=== PATIENT | female | born 1970 | race Caucasian/White ===

== ENCOUNTER 2022-03-09 21:32 | Emergency (ER) | payer OTHER, SELFPAY ==
[2022-03-09 21:39] VITALS: BP 174/70; PULSE 102; RESP 20; TEMP 36.5; O2SAT 100; BMI 21.2
[2022-03-09 22:38] LABS: Influenza A PCR NEGATIVE (Negative); Influenza B PCR NEGATIVE (Negative); Resp Syncy Virus RNA Qual PCR NEGATIVE (Negative); SARS COV2 PCR INHOUSE NEGATIVE (Negative)
--- NOTE | 2022-03-09 23:56 | ED.GENADULT ---
HPI - General Adult General Chief complaint: General Medical Stated complaint: Chest Pain/ Diff Breathing Time Seen by Provider: 03/09/22 23:56 Source: patient Mode of arrival: ambulatory Limitations: language barrier (Patient speaks Sinhala, 1st language is Yi, triage rn used) History of Present Illness HPI narrative: 51-year-old female who presents emergency department for evaluation of chest pain, shortness of breath, numbness in her hands feet, periorbital area and anxiety. Patient states that she has been having chest pain over the last week. She describes his pain is a constant spasm like sensation located in her left chest and back. The patient states she went to [facility] on Monday, this 03/05/2022. Patient states that they did blood work, EKGs and x-rays and told her that she was having spasm of her chest. The patient states this evening, she was feeling anxious and developed pain in the left side of her chest which she describes as a spasm like pain. She then felt short of breath. Her hands and feet became numb. She states that her hands went into spasm. She states that her mouth became very dry and numb. She was concerned about the symptoms she came to the emergency department for evaluation. Patient states that she is under stress at home. She states she lives in a small trailer with her daughter and her that is been very stressful. She has lived in this [facility] for 6 years. She states she is having trouble sleeping. She only sleeps 2-3 hours per night. She states that she has had a poor appetite as well. She denies feeling depressed but she states she does feel very anxious. She has not been diagnosed or treated for anxiety. She denied fever but states she gets occasional chills. She denied rhinorrhea, sore throat, cough. She states she has had nausea with no vomiting. Related Data Previous Rx's Medication Instructions Recorded lorazepam 0.5 mg tablet (Ativan) 0.5 mg PO BEDTIME PRN anxiety #10 03/10/22 tabs Allergies Allergy/AdvReac Type Severity Reaction Status Date / Time corn [[place]] Allergy Mild UNKNOWN Unverified 12/12/19 16:33 No Known Allergies Allergy Mild N/A Unverified 12/12/19 16:33 soybean [Soybean] Allergy Mild UNKNOWN Unverified 12/12/19 16:33 wheat bran [Wheat Bran] Allergy Mild UNKNOWN Unverified 12/12/19 16:33 Review of Systems Review of Systems: Yes all other systems are reviewed and are negative [facility] Past Medical History [facility] Narrative: Past medical history: Seasonal allergies, urticaria, scoliosis, kidney stones. Social history: She lives in a trailer with her and daughter. She denies tobacco, alcohol and drug use. Social History Social History Advance Directives: No Advance Directives Information Provided: No Physical Exam ED Vital Signs: Vital Signs - 24 hr 03/09/22 21:39 Temperature 97.7 F Pulse Rate 102 H Respiratory Rate 20 Blood Pressure 174/70 H Pulse Oximetry 100 Oxygen Delivery Method Room Air BMI result Body Mass Index 21.2 Const Other: Awake, alert, female patient, she does appear to be anxious, she answers all questions appropriately, she is very thin with a BMI of 21.3. [facility] Head: Yes normal to inspection, Yes normocephalic and Yes atraumatic Ears: external ears normal General nose exam: Normal external nose present Face and sinus: Yes normal facial exam Mouth: Normal oral and palatal mucosa present Throat: Yes posterior oropharynx normal Eyes General: appearance normal, both eyes and all related structures Pupils: Equal, round and reactive pupils present Neck Neck: Yes normal visual inspection, Yes no lymphadenopathy, Yes trachea midline and Yes supple Chest Chest palpation & inspection: normal inspection of the chest and normal palpation of entire chest wall Resp Effort & Inspection: normal respiratory effort and able to speak in complete sentences Auscultation: clear to auscultation bilaterally Cardio Rate: regular rate Rhythm: regular rhythm Heart sounds: S1 normal heart sound present, S2 normal heart sound present and no murmurs GI Inspection: Yes normal to inspection Palpation (GI): Soft to palpation, nontender and no guarding Auscultation: normal bowel sounds General: Yes no CVA tenderness Back/Spine/Pelvis Back: no CVA tenderness Skin General skin exam: no rashes or lesions noted Neuro Cranial nerves: Yes CN's II-XII intact bilaterally and Yes Equal, round and reactive pupils present Cognition (Neuro): normal cognition Motor exam (neuro): 5/5 motor strength present throughout Extrem General: Yes normal to inspection Psych Appearance: grossly normal Speech and movement: Normal speech and movement present Affect: Anxious affect present Attitude: cooperative Thought process: Normal thought process present Thought content: Normal thought content present Course Course Course Narrative: 51-year-old female who presents emergency department for evaluation of multiple symptoms that consistent with anxiety/panic attack. The patient was evaluated recently at [facility] ER and had a negative workup for her chest pain. Patient was treated with Ativan 0.4 mg orally. Patient will be referred to [facility] as an outpatient to get help with her anxiety and panic attacks. Patient was given a prescription for Ativan 0.5 mg, 1 pill at night to help with her insomnia and anxiety. She was given printed and verbal instructions and discharged home. Medical Decision Making Lab Data Labs: Lab Results 03/09/22 Range/Units 21:57 Influenza Type A (PCR) NEGATIVE (Negative) Influenza Type B (PCR) NEGATIVE (Negative) RSV RNA Qual (PCR) NEGATIVE (Negative) SARS-CoV-2 RNA (RT-PCR) NEGATIVE (Negative) Discharge Plan Discharge Clinical Impression: Anxiety attack, Acute hyperventilation syndrome, Chest pain Patient Disposition: Home, Self-Care Instructions: Hyperventilation (ED), Anxiety (ED) Additional Instructions: Your symptoms are consistent with anxiety/panic attacks and hyperventilation syndrome. You were given Ativan (lorazepam) 0.5 mg orally. This medication will make you sleepy will help with anxiety. Take Ativan (lorazepam) 0.5 mg at night to help with anxiety and sleep I want you to follow-up with [facility] ([facility]) to get treatment for your anxiety and panic attacks. Their phone number is . Call them today to set up an appointment to get help with your anxiety. Follow-up with your doctor in 2 days. Please return to the emergency department if your symptoms get worse or if you develop any symptoms that are concerning to you. Prescriptions: New lorazepam [Ativan] 0.5 mg tablet 0.5 mg PO BEDTIME PRN (Reason: anxiety) Qty: 10 0RF Rx Instructions: patient may ask for partial fill
[2022-03-10] MEDS: LORazepam 0.5 MG TABLET PO (00:38)
[2022-03-10 01:11] VITALS: BP 143/79; PULSE 80; RESP 18; TEMP 37.1; O2SAT 98
== END 2022-03-10 01:12 | disposition home or self-care (01) ==
PROVIDERS: Emergency Provider Emergency Medicine Emergency Medical Services
DX: R07.89 Other chest pain (principal); R06.02 Shortness of breath; F41.1 Generalized anxiety disorder; F43.0 Acute stress reaction; Z20.822 Contact with and (suspected) exposure to COVID-19
CPT/HCPCS: 0241U; 99283